=== PATIENT | male | born 1985 | race Caucasian/White ===

== ENCOUNTER 2018-10-17 18:24 | Emergency (ER) | payer MEDICAID ==
[~2018-10-17] VITALS: Ht 180.3 cm; Wt 76.0 kg
[2018-10-17 21:50] LABS: BASOPHILS % 0.7 % (0.0-2.0); EOSINOPHILS % 5.4 % (0.0-5.0); HEMATOCRIT. 41.4 % (42.0-52.0); HEMOGLOBIN. 14.6 g/dL (14.0-18.0); LYMPHOCYTES % 35.4 % (20.0-50.0); MEAN CORPUSCULAR HEMOGLOBIN 30.5 pg (28.0-32.0); MEAN CORPUSCULAR VOLUME 86.4 fL (80.0-94.0); MEAN PLATELET VOLUME 9.6 fl (7.4-10.4); MONOCYTES % 7.5 % (2.0-8.0); PLATELET 189 x1000/uL (130-400); RED BLOOD CELL COUNT 4.79 mill/uL (4.7-6.1); RED CELL DISTRIBUTION WIDTH 13.6 % (11.6-14.6)
[2018-10-17 21:53] LABS: CHLORIDE 101 mEq/L (98-107)
[2018-10-17 22:08] VITALS: BP 112/85
== END 2018-10-17 22:57 | disposition home or self-care (01) ==
LOC: ER 19:46
DX: R19.7 Diarrhea, unspecified (principal); K64.8 Other hemorrhoids; R53.1 Weakness; R10.31 Right lower quadrant pain
CPT/HCPCS: 36415; 99284